=== PATIENT | female | born 1970 | race Caucasian/White ===

== ENCOUNTER 2019-08-13 23:41 | Emergency (ER) | payer OTHER ==
[~2019-08-13] VITALS: Ht 162.6 cm; Wt 123.6 kg
[~2019-08-13 23:41] MED LIST: AMOXICILLIN500 MG PO; FLEXERIL PO; FLEXERIL5 MG PO; LORCET 5-325 MG1 TAB PO; LORTAB5 PO; ONDANSETRON4 MG PO; ROBITUSSIN AC10 ML PO; STERAPRED DS10 MG PO; ULTRAM50 M1 PO
[2019-08-14] MEDS ORDERED: RANITIDINE150 M1 PO (00:01)
[2019-08-14] MEDS ORDERED: LORTAB 1010 MG PO (01:33)
[2019-08-14] MEDS ORDERED: FLEXERIL PO (01:33)
[2019-08-14] MEDS ORDERED: MEDDOSEPAK PO (01:33)
[2019-08-14 01:56] VITALS: BP 136/67
== END 2019-08-14 01:56 | disposition home or self-care (01) | DRG 552 ==
LOC: ED 23:41
DX: M51.17 Intervertebral disc disorders with radiculopathy, lumbosacral region (principal); M25.552 Pain in left hip

== ENCOUNTER 2020-12-13 15:54 | Emergency (ER) | payer BC, OTHER ==
[~2020-12-13] VITALS: Ht 162.6 cm; Wt 100.0 kg
[~2020-12-13 15:54] MED LIST changes: +LORTAB 1010 MG PO; +MEDDOSEPAK PO; +RANITIDINE150 M1 PO
[2020-12-13] MEDS ORDERED: PHENTERMINE37.5 MG PO (16:29)
[2020-12-13 16:48] LABS: URINE BLOOD DIPSTICK LARGE (NEGATIVE); URINE COLOR YELLOW; URINE GLUCOSE - DIPSTICK NEGATIVE (NEGATIVE); URINE KETONE NEGATIVE (NEGATIVE); URINE LEUK ESTERASE NEGATIVE (NEGATIVE); URINE NITRITE - DIPSTICK NEGATIVE (Negative); URINE PH 5.5 (4.5-8.0); URINE PROTEIN - DIPSTICK 100 mg/dL (NEG-TRACE); URINE SPECIFIC GRAVITY >=1.030; URINE UROBILINOGEN - DIPSTICK 0.2 E.U./dL (0.2)
[2020-12-13 16:52] LABS: URINE BILIRUBIN - DIPSTICK NEGATIVE (NEGATIVE)
[2020-12-13 16:59] LABS: URINE RBC >100 RBC/hpf (0-5); URINE SQUAMOUS EPITHELIAL CELL FEW EPI/hpf (0-FEW)
[2020-12-13 17:06] LABS: IMMATURE GRANULOCYTES 0.4 % (0.0-5.0); MEAN CORPUSCULAR HGB 20.7 pG CALC (26.0-32.0); MEAN CORPUSCULAR HGB CONC 28.9 g/dL CAL (32.0-36.0); NEUT# 6.62 thou/uL (2.00-7.15); RED BLOOD COUNT 4.05 mill/uL (4.20-5.60); RED CELL DISTRI WIDTH 18.4 % (11.5-15.5)
[2020-12-13 17:08] LABS: HEMATOCRIT 29.1 % (37.0-47.0); HEMOGLOBIN 8.4 g/dl (12.0-16.0); MEAN CELL VOLUME 71.9 fL CALC (80.0-100.0)
[2020-12-13 17:19] LABS: ALBUMIN 4.2 g/dL (3.2-5.0); ANION GAP 12 (6-22 (CALC)); BUN 13 mg/dL (7-17); BUN/CREATININE RATIO 18 (12-20 (CALC)); CARBON DIOXIDE 25 mmol/l (22-30); CHLORIDE 105 mmol/l (95-108); CREATININE 0.7 mg/dL (0.5-1.0); GFR > 60 ML/MIN (>=60 (CALC)); GFR FOR AFR.AMER. > 60 ML/MIN (>=60 (CALC)); POTASSIUM 3.8 mmol/l (3.5-5.1); SGOT/AST 23 u/l (14-36); SODIUM 138 mmol/l (137-146)
[2020-12-13 17:23] LABS: ALKALINE PHOSPHATASE 154 u/l (38-126); BILIRUBIN, TOTAL 0.5 mg/dL (0.0-1.4); TOTAL PROTEIN 8.1 g/dL (6.3-8.2)
[2020-12-13] MEDS ORDERED: FEOSOL45 MG PO (19:39)
[2020-12-13 20:00] VITALS: BP 116/76
== END 2020-12-13 20:00 | disposition home or self-care (01) | DRG 761 ==
LOC: ED 15:54
PROVIDERS: Family Medicine
DX: N93.9 Abnormal uterine and vaginal bleeding, unspecified (principal); D25.9 Leiomyoma of uterus, unspecified; D64.9 Anemia, unspecified; K21.9 Gastro-esophageal reflux disease without esophagitis